=== PATIENT | male | born 1975 ===

== ENCOUNTER 2017-01-29 10:30 | Outpatient (RCR) | payer BC ==
--- NOTE | 2017-01-08 13:40 | PT/OT/ST INITIAL EVALUATION ---
Department of Health and Human Services Form Approved [facility] Care Financing Administration OMB No. [id number] PLAN OF CARE/ASSESSMENT FOR OUTPATIENT REHABILITATION (Complete for Initial Claims Only) 1. PATIENT'S NAME Rony Granger 2. ACC # [id number] 3. [id number] 4. PROVIDER NO. [id number] 5. TYPE: PT 6. PRIOR HOSPITALIZATION None 7. PRIMARY DX Partial right rotator cuff tear and tendinosis 8. SECONDARY DX Limited range of motion and strength at right shoulder. 9. ONSET DATE Many years ago 10. REFERRAL DATE 01/04/2017 11. SOC. DATE 01/05/2017 12. TIME OF EVAL 12:[address] Yfn Moscoso 13. CHARGES/UNITS Evaluation, manual therapy, Therex and vasopneumatic 14. G CODES NA 15. PRIOR LEVEL OF FUNCTION; PERTINENT HISTORY (Prior therapy results, reason for referral.) S: Reason for referral: The patient was referred to physical therapy by Dr. Moscoso with the diagnosis of right shoulder SLAP tear and partial rotator cuff tear with tendinosis. Orders are for physical therapy 2 times a week for 4 weeks. Mechanism of injury: The patient reports that he had injured his shoulders when he was in his teens pitching a baseball. The patient notes that over the years, he still has some pain when trying to throw or play catch with his sons. He notes that symptoms are worse when lifting his arm or trying to reach for something. The patient is right handed. He describes the pain as a constant pain, sometimes a dull ache and sometime a sharp pain. The patient notes that he has been experiencing increased weakness at his right arm since July. He has pain when sleeping on his right side. Pain level: Current pain rating is 4/10. Past medical history: The patient does not report any other significant past medical history. Current medications: The patient does take Advil as needed for pain control. Personal health rating: Rates overall health as good. 16. INITIAL ASSESSMENT/SAFETY PRECAUTIONS/MEDICAL COMPLICATIONS (Level of function at start of care. Be specific, use objective measures, list problems.) O: APPEARANCE, OBSERVATION AND GAIT: The patient is a tall, slender 41-year-old male. He demonstrates slight forward head posture, mildly rounded shoulders. PALPATION: He has tenderness to palpation at his anterior right shoulder region and also right lateral deltoid region. JOINT MOBILITY: The patient did demonstrate mild increase in mobility at his right shoulder with anterior to posterior mobilizations. When elevating his right shoulder he did demonstrate increased substitution. RANGE OF MOTION/FLEXIBILITY: Right shoulder active flexion 113 degrees with substitution, abduction 85 degrees. Left shoulder active flexion 156 degrees, abduction 158 degrees. Passive range of motion right shoulder flexion 150 degrees, abduction 160 degrees, external rotation 107 degrees, and internal rotation 65 degrees. Left shoulder passive flexion 150 degrees, abduction 170 degrees, external rotation 90 degrees and internal rotation 55 degrees. STRENGTH: Right shoulder flexion 4/5 manual muscle test with pain, abduction 4+/5 manual muscle test, external rotation 4/5 manual muscle test, internal rotation 4/5 manual muscle test. Elbow flexion 4+/5 manual muscle test and extension 4/5 manual muscle test with pain. Left shoulder and elbow strength were 5/5 manual muscle test. TODAY'S TREATMENT: Treatment included initial evaluation followed by gentle manual stretching and mobilization to right shoulder. The patient was then instructed on home exercise program for flexibility and light strengthening and stabilization exercises. The treatment ended with vasopneumatic cold compression to the patient's right shoulder. 17. INITIAL POC: (Specify procedures, modalities, short and half-way goals) A: The patient presents with right shoulder pain with limitations in range of motion, flexibility, and strength. PROGNOSIS: The patient is a good candidate for physical therapy to regain flexibility, motion and strength, as well as manage pain. SHORT TERM GOALS: 1. The patient to be compliant with home exercise program in 2 weeks. 2. The patient to demonstrate full passive motion at right shoulder without pain in 2 weeks. 3. The patient to demonstrate full active motion without substitution at right shoulder in 4 weeks. 4. The patient to demonstrate full resistance at right shoulder without pain in 4 weeks. 5. The patient to report that he is able to perform normal daily activities using his right arm with a pain rating of 1 to 2/10 in 6 weeks. P: The patient will be seen 2 times a week over the next 4 weeks as ordered by his physician. We will continue to progress the patient with a range of motion, range of motion, stabilization, and strengthening activities as tolerated. Modalities and manual therapy will be used as necessary to decrease pain and inflammation. 18. FREQUENCY 2 times per week 19. DURATION 4 weeks 20. FUNCTIONAL LEVEL (End of claim period) 21. PHYSICIAN SIGNATURE ? ON FILE OR ENTER HERE: 22. DATE: I certify the need for these services furnished under this plan of care and if for partial hospitalization. 23. CERTIFICATION FROM THROUGH FORM [id number]
== END 2017-02-12 12:05 | disposition home or self-care (01) ==
LOC: PT 10:30
PROVIDERS: ATTEND Orthopaedic Surgery
DX: M25.511 Pain in right shoulder (principal)